=== PATIENT | female | born 1990 | race Caucasian/White ===

== ENCOUNTER 2018-10-15 14:59 | Inpatient (IN) ==
[2018-10-15] MEDS ORDERED: MISOPROSTOL 100 MCG TABLET VG PRN (18:02)
[2018-10-15 19:32] LABS: Cocaine Ur Negative (NEGATIVE); Urine Barbiturate Negative (NEGATIVE); Urine Benzodiazepines Negative (NEGATIVE); Urine Opiates Negative (NEGATIVE); Urine PCP Negative (NEGATIVE); Urine THC Negative (NEGATIVE)
[2018-10-15] MEDS: RINGER'S SOLUTION,LACTATED 1,000 ML IV PRN (19:35)
[2018-10-15] MEDS: OXYTOCIN/DEXTROSE 5%-WATER 30 UNITS/500 ML BAG IV ONE (20:40)
[2018-10-16] MEDS: RINGER'S SOLUTION,LACTATED 1,000 ML IV PRN ×3 (03:38→18:18)
[2018-10-16] MEDS: BUTORPHANOL TARTRATE 2 MG/ML VIAL IV PRN ×2 (05:04→20:12)
--- NOTE | 2018-10-16 08:49 | PN ---
Subjective - Date and Time Seen Date: 10/16/18 Subjective Narrative: labor note G1 39 weeks, induced for preeclampsia. pitocin started last night at 20:40, currently at 4 mu/min contractions: irregular, but some q1-2min. received stadol at 5 am. FHR: 120s with minimal variability from stadol, but with occasional accels. cervix: 2-3 cm, 60% and -1, very posterior. Attempted to place a Cardenas bulb through cervix, not successful. Plan: continue pitocin as tolerated. epidural later. Monster Ferrer MD Objective - Vitals Vitals: Last Vital Signs Temp 37.4 C 10/15/18 18:30 Pulse 78 10/15/18 18:30 Resp 18 10/15/18 18:30 BP 129/97 H 10/15/18 18:30 Pulse Ox 99 10/15/18 18:30
[2018-10-17] MEDS ORDERED: RINGER'S SOLUTION,LACTATED 1,000 ML IV ONE (02:30)
[2018-10-17] MEDS ORDERED: NALOXONE HCL 1 MG/1 ML SYRG IV PRN (02:50)
[2018-10-17] MEDS ORDERED: ONDANSETRON HCL/PF 2 MG/ML VIAL IV PRN (02:50)
[2018-10-17] MEDS ORDERED: fentaNYL CITRATE/PF 50 MCG/ML AMPUL IT SCH (03:00)
--- NOTE | 2018-10-17 03:45 | ANES ---
Anesthesia Pre Procedure Eval Vitals/Labs: Last Vital Signs Temp 37.4 C 10/15/18 18:30 Pulse 78 10/15/18 18:30 Resp 18 10/15/18 18:30 BP 129/97 H 10/15/18 18:30 Pulse Ox 99 10/15/18 18:30 HOME MEDICATIONS Vits96/Iron Fum/Folic [ S] 1 tab PO DAILY 07/23/18 [Last Taken 10/15/18] Allergies/Adverse Reactions: Allergies Allergy/AdvReac Type Severity Reaction Status Date / Time No Known Allergies Allergy Verified 10/15/18 18:04 - Planned Procedure Planned Procedure: INDUCTION Medication List Reviewed:: Yes Allergies Verified: Yes Medical History (Last Reviewed 10/17/18 @ 03:44 by Alhaji Gillis CRNA) no surgical history Premature 3 months premature at time of delivery Seizures Onset Date: Unknown as a child, last one in 2nd grade Family History (Last Reviewed 10/17/18 @ 03:44 by Alhjai Gillis CRNA) Mother Alive and well Kidney donor to her sister Father Unknown family medical history - Family Anesthesia History Family History:: no untoward family reactions to anesthesia, no familial bleeding tendencies, no family history of clotting disorders, no family history of premature - Airway/Neck/Teeth Within Normal Limits:: Yes Teeth Condition: intact Neck Exam: full range of motion Mallampatti Score: 2 Thyromental (T-M) distance: > 6 cm Mandibulo Hyoid distance: > 3 cm - Respiratory Respiratory Physical: lungs clear Sleep Apnea currently treated: No Sleep Apnea by current assessment: No - Cardiovascular Tolerate Activity: Good Heart Sounds: S1 & S2, Regular - Anesthesia Assessment and Plan ASA Class: PS, II, E Anesthesia Type Plan: Epidural - CSE for labor analgesia
--- NOTE | 2018-10-17 04:13 | ANES ---
Anesthesia Procedure Note Procedure Note: ANESTHESIA PROCEDURE NOTE Date of Procedure: 10/17/2018 Time of procedure: 3:50 AM. Performed by: Alhaji Gillis CRNA, MSN Driver Education Instructor: Barbara Chadwick RN. Preprocedure diagnosis: Active labor, labor pain. Post procedure diagnosis: Same. Procedure:Epidural for labor analgesia L3 4. Indications: Labor pain. Findings: See below. Details of the procedure: The patient was placed on the side of the bed in sitting positionand prepped with DuraPrep then draped in a sterile fashion. Lidocaine 1% was infiltrated to the skin and subcutaneous tissues at the level of the L3 4 interspace. An 18-gauge Touhy needle was used to approach the epidural space with loss of resistance technique. Once loss of resistance was achieved a 27-gauge spinal needle was passed through the epidural needle and CSF was contacted. After CSF returned, 20 mcg of fentanyl was injected in the spinal needle was removed the epidural catheter was then threaded approximately 4 cm in the epidural needle was removed. The catheter was taped in place and after careful aspiration 3 mL of 1.5% lidocaine with 1-200,000 epinephrine was injected without change in maternal heart rate or sensorium. . EBL: Minimal. Fluids: N/A. Specimen: N/A. Post procedure condition: The patient tolerated the procedure well with good relief. No complications were noted. Thank you for this consultation. Alhaji Gillis CRNA, MSN
--- NOTE | 2018-10-17 04:14 | ANES ---
Post Anesthesia Discharge - Transfer of Care Transfer of Care handoff given to nurse: Yes - Discharge from PACU Discharge from PACU when meets criteria: Yes - comfortable after CSE
[2018-10-17] MEDS: BUPIVACAINE HCL/0.9 % NACL/PF 250 ML EP PRN (04:27)
--- NOTE | 2018-10-17 04:39 | ANES ---
Post Anesthesia Assessment - Vital Signs Vitals: Last Vital Signs Temp 37.4 C 10/15/18 18:30 Pulse 78 10/15/18 18:30 Resp 18 10/15/18 18:30 BP 129/97 H 10/15/18 18:30 Pulse Ox 99 10/15/18 18:30 Airway Patency: Normal - Mental Status Level Of Consciousness: Awake, Alert, Appropriate - Pain Level Pain Score: 0 - N/V Assessment Dehydration:: Yes
[2018-10-17] MEDS: RINGER'S SOLUTION,LACTATED 1,000 ML IV PRN ×2 (10:41→19:00)
--- NOTE | 2018-10-17 12:54 | PN ---
Subjective - Date and Time Seen Date: 10/17/18 Subjective Narrative: labor note G1 39.1 weeks, induced for preeclampsia due to elevated BP and proteinuria. GBS negative. induced with pitocin, currently at 8 mu/min Contractins every 3-4 min. Cervix 3-4 cm, 80% and -1, making minimal change since yesterday. AROM around 8 AM this morning. large clear fluid. received epidural at 4:30 am. FHR: reassuring. Plan: continue pitocin as tolerated. possible c/s discussed. signed out care to Dr. Umaña now. Monster Ferrer MD Objective - Vitals Vitals: Last Vital Signs Temp 37.4 C 10/15/18 18:30 Pulse 78 10/15/18 18:30 Resp 18 10/15/18 18:30 BP 129/97 H 10/15/18 18:30 Pulse Ox 99 10/15/18 18:30 Cauti Physician Documentation - Urinary Catheter Management Urethral (Cardenas) Date of Insertion: 10/17/18 Time of Insertion: 04:15
--- NOTE | 2018-10-17 15:53 | PN ---
Marky Note - Interim Date: 10/17/18 Time: 15:46 Narrative: 10/17/18 15:46 Patient comfortable with epidural cvx was /-1 IUPC placed FHT cat 1 I was then called that the IUPC was curled. I replaced the IUPC. I threaded the IUPC on the left side of the head rather than the right side of the head. The IUPC was inserted without difficulty FHT still cat 1 Continue to titrate pitocin up The patient and her mother were updated regarding the plan of care
--- NOTE | 2018-10-17 18:31 | PN ---
Progess Note - Interim Date: 10/17/18 Time: 18:30 Narrative: 10/17/18 18:30 Called by RN regarding an intrapartum fever consistent with chorioamnionitis. Will order triple antibiotics
[2018-10-17] MEDS: AMPICILLIN SODIUM 2,000 MG in NORMAL SALINE 100 ML IV SCH (19:39)
[2018-10-17] MEDS ORDERED: GENTAMICIN SULFATE 80 MG in DEXTROSE 5 % IN WATER 100 ML IV ONE ×2 (20:00)
[2018-10-17] MEDS: CLINDAMYCIN PHOSPHATE 900 MG in DEXTROSE 5 % IN WATER 100 ML IV SCH ×2 (20:15)
[2018-10-18] MEDS: AMPICILLIN SODIUM 2,000 MG in NORMAL SALINE 100 ML IV SCH ×4 (01:15→23:32)
[2018-10-18] MEDS: BUPIVACAINE HCL/0.9 % NACL/PF 250 ML EP PRN (01:47)
[2018-10-18] MEDS ORDERED: ACETAMINOPHEN 500 MG TABLET PO ONE (02:10)
[2018-10-18] MEDS: CLINDAMYCIN PHOSPHATE 900 MG in DEXTROSE 5 % IN WATER 100 ML IV SCH ×6 (03:31→19:21)
[2018-10-18] MEDS: OXYTOCIN/DEXTROSE 5%-WATER 30 UNITS/500 ML BAG IV ONE (03:39)
[2018-10-18] MEDS ORDERED: ceFAZolin SODIUM/DEXTROSE,ISO 2 GM/50 ML BAG IV ONE (05:38)
--- NOTE | 2018-10-18 05:41 | PN ---
Progess Note - Interim Date: 10/18/18 Time: 05:39 Narrative: 10/18/18 05:39 The patient had a slow progress of labor. She has been pushing for over an hour without any descent in the head. Pt counseled regarding delivery for arrest of descent. All risks, benefits, and alternatives of the procedure were explained to the patient and the patient consented to the procedure. Ancef [address] Cardenas catheter Turn pitocin off Remove IUPC NPO now
[2018-10-18] MEDS ORDERED: HYDROcodone/ACETAMINOPHEN 1 EACH TABLET PO PRN (05:43)
[2018-10-18] MEDS ORDERED: BISACODYL 10 MG SUPP.RECT RC PRN (05:43)
[2018-10-18] MEDS ORDERED: diphenhydrAMINE HCL 25 MG CAPSULE PO PRN (05:43)
[2018-10-18] MEDS ORDERED: SIMETHICONE 80 MG TAB.CHEW PO PRN (05:43)
[2018-10-18] MEDS ORDERED: SENNOSIDES 8.6 MG TABLET PO PRN (05:43)
[2018-10-18] MEDS ORDERED: RINGER'S SOLUTION,LACTATED 1,000 ML IV ONE (05:43)
[2018-10-18] MEDS ORDERED: ONDANSETRON HCL/PF 2 MG/ML VIAL IV PRN (05:43)
[2018-10-18] MEDS ORDERED: OXYTOCIN 20 UNITS in RINGER'S SOLUTION,LACTATED 1,000 ML IV ONE (05:43)
--- NOTE | 2018-10-18 07:38 | ANES ---
Anesthesia Pre Procedure Eval Vitals/Labs: Last Vital Signs Temp 37.4 C 10/15/18 18:30 Pulse 78 10/15/18 18:30 Resp 18 10/15/18 18:30 BP 129/97 H 10/15/18 18:30 Pulse Ox 99 10/15/18 18:30 HOME MEDICATIONS Vits96/Iron Fum/Folic [ S] 1 tab PO DAILY 07/23/18 [Last Taken 10/15/18] Allergies/Adverse Reactions: Allergies Allergy/AdvReac Type Severity Reaction Status Date / Time No Known Allergies Allergy Verified 10/15/18 18:04 - Planned Procedure Planned Procedure: C/S Medication List Reviewed:: Yes Allergies Verified: Yes Medical History (Last Reviewed 10/18/18 @ 07:37 by Efren Haider CRNA) no surgical history Premature 3 months premature at time of delivery Seizures Onset Date: Unknown as a child, last one in 2nd grade Family History (Last Reviewed 10/18/18 @ 07:37 by Efren Haider CRNA) Mother Alive and well Kidney donor to her sister Father Unknown family medical history - Family Anesthesia History Family History:: no untoward family reactions to anesthesia, no familial bleeding tendencies, no family history of clotting disorders, no family history of premature - Airway/Neck/Teeth Within Normal Limits:: Yes Teeth Condition: intact Mallampatti Score: 3 Thyromental (T-M) distance: > 6 cm Mandibulo Hyoid distance: > 3 cm - Respiratory Respiratory Physical: lungs clear Smoking Status: Never smoker Discussed smoking cessation including day of surgery: No Sleep Apnea currently treated: No Sleep Apnea by current assessment: No Discussed Risks/Treatment of KARISSA: No - Cardiovascular Tolerate Activity: Good Heart Sounds: S1 & S2, Regular - Anesthesia Assessment and Plan ASA Class: PS, II, E Anesthesia Type Plan: Epidural
--- NOTE | 2018-10-18 07:39 | ANES ---
Post Anesthesia Discharge - Transfer of Care Transfer of Care handoff given to nurse: Yes - Discharge from PACU Discharge from PACU when meets criteria: Yes - Discharge to ASU Discharge to ASU-no complications/pt stable: Yes
--- NOTE | 2018-10-18 07:41 | ANES ---
Post Anesthesia Assessment - Vital Signs Vitals: Last Vital Signs Temp 37.4 C 10/15/18 18:30 Pulse 78 10/15/18 18:30 Resp 18 10/15/18 18:30 BP 129/97 H 10/15/18 18:30 Pulse Ox 99 10/15/18 18:30 Airway Patency: Normal - Mental Status Level Of Consciousness: Awake - Pain Level Pain Score: 0 - N/V Assessment Nausea/Vomiting Presence: None Dehydration:: No
--- NOTE | 2018-10-18 07:47 | OR ---
Operative Report - Dictated Report Narrative: Date of delivery: 10/18/2018 Time of delivery: 636 Gender: male weight: 3701 grams APGARS 9/9 Procedure: primary delivery Surgeon: Dr. Umaña Anesthesia: epidural Indications for the procedure: The patient is a 28 year old @ 39w 2d who had a very long induction of labor. She was induced with pitocin. Rupture of membranes occurred yesterday. The patient developed an intrapartum fever consistent with chorioamnionitis and for this reason she was started on antibiotics. She had a slow progress of labor. Once she was 10cm dilated she pushed for over an hour without any descent of the head and thus the decision to perform a delivery was made for arrest of descent. All risks, benefits, and alternatives of the procedure were explained to the patient and the patient consented to the procedure. Description of the procedure: The patient was taken to the operating room where her epidural anesthesia was found to be adequate. She was then prepped and draped in the supine position in the standard surgical fashion. Attention was then turned to the abdomen. A Pfannestiel skin incision was made. The incision was carried through the subcutaneous tissue. The subcutaneous tissue was highly vascular. Bleeding was controlled as I was going in. A brisk bleeder in the left side of the incision in the subcutaneous tissue was controlled as well. The fascia was incised in the midline. The fascial incision was extended laterally. The fascia was dissected from the underlying rectus muscles. The peritoneum was entered bluntly. The bladder was noted to be in the field likely secondary from swelling from a prolonged labor. A large Rohit retractor was placed. I did not feel like there was enough room to accommodate the head and thus the incision was extended bilaterally and the Rhoit retractor was placed again. The uterus was incised in a low transverse fashion well away from the bladder. The head was delivered atraumatically. The rest of the infant was delivered atraumatically. The shoulders were noted to be large compared to the size of the head. The rest of the infant was delivered and handed off to the attending pediatric staff after the cord was clamped and cut. The uterus was cleared of all clots and debris. The inferior layer of the incision was grasped with Allis clamps. The uterine incision was closed in two layers using 0-vicryl. Several additional sutures needed to be placed for hemostasis. The Rohit retractor was removed once hemostasis was ensured. The rectus muscles were examined and made hemostatic. The fascia was also examined and made hemostatic. The fascial incision was closed with 1-0 vicryl. The subcutaneous tissue was irrigated. Additional hemostasis of the subcutaneous layer was obtained. The subcutaneous tissue was closed with 2-0 vicryl. The skin was closed with 3-0 monocryl on a Corky needle. Dermabond was placed over the incision. All sponge, lap, and needle counts were correct. The patient tolerated the procedure well. She was transferred to the recovery room in stable condition. EBL: 600 mL Complications: none Specimens: placenta Definition: * The number of deliveries resulting in a live the patient experienced prior to current hospitalization * The previous delivery of live twins or any live multiple gestation is considered one live event. *If primagravida or nulliparous is documented select zero for the number of previous live births. Live Births: 0
[2018-10-18] MEDS: KETOROLAC TROMETHAMINE 30 MG/ML VIAL IV PRN ×2 (09:33→19:19)
[2018-10-18] MEDS: HYDROcodone/ACETAMINOPHEN 1 EACH TABLET PO PRN ×3 (09:34→18:10)
[2018-10-18] MEDS: DOCUSATE SODIUM 100 MG CAPSULE PO SCH ×2 (11:56→20:21)
[2018-10-18] MEDS ORDERED: RHO(D) IMMUNE GLOBULIN 1,500 UNIT SYRINGE IM ONE (14:58)
[2018-10-19] MEDS: HYDROcodone/ACETAMINOPHEN 1 EACH TABLET PO PRN ×5 (02:39→20:33)
[2018-10-19] MEDS: KETOROLAC TROMETHAMINE 30 MG/ML VIAL IV PRN (02:39)
[2018-10-19] MEDS: AMPICILLIN SODIUM 2,000 MG in NORMAL SALINE 100 ML IV SCH ×2 (05:01→10:34)
[2018-10-19] MEDS: CLINDAMYCIN PHOSPHATE 900 MG in DEXTROSE 5 % IN WATER 100 ML IV SCH ×2 (05:02)
--- NOTE | 2018-10-19 09:24 | PN ---
Subjective - Date and Time Seen Date: 10/19/18 Time: 09:21 Subjective Narrative: Pt without complaints Objective Objective Narrative: See vital signs - Review of Systems Generalized/Overall Review: Reports: No Symptoms Reported Misc: All systems neg except as marked - Vitals Vitals: Last Vital Signs Temp 37.3 C 10/19/18 09:19 Pulse 81 10/19/18 09:19 Resp 18 10/19/18 09:19 BP 122/85 10/19/18 09:19 Pulse Ox 97 10/19/18 09:19 - Exam Constitutional: Present: Alert, Oriented x3, Cooperative, No distress Abdomen: Present: soft, nontender, nondistended - incision c/d/i Extremity: Present: non-tender, no calf tenderness Skin Exam: Present: normal color, warm/dry, no cyanosis Appearance: Present: appropriate appearance Eye contact: Present: cooperative Thoughts: Present: normal thought pattern Cauti Physician Documentation - Urinary Catheter Management Urethral (Cardenas) Urethral Indwelling: No Date of Insertion: 10/18/18 Time of Insertion: 05:56 Date of Removal: 10/18/18 Time of Removal: 19:00 Assessment/Plan Plan Narrative: POD 1 s/p primary delivery for arrest of descent Doing well Continue routine care
[2018-10-19] MEDS: DOCUSATE SODIUM 100 MG CAPSULE PO SCH ×2 (09:50→20:33)
[2018-10-19] MEDS: IBUPROFEN 800 MG TABLET PO PRN (12:57)
[2018-10-20] MEDS: IBUPROFEN 800 MG TABLET PO PRN ×3 (07:11→20:44)
[2018-10-20] MEDS: HYDROcodone/ACETAMINOPHEN 1 EACH TABLET PO PRN ×3 (07:12→20:47)
[2018-10-20] MEDS: DOCUSATE SODIUM 100 MG CAPSULE PO SCH ×2 (08:57→20:43)
--- NOTE | 2018-10-20 15:24 | PN ---
Subjective - Date and Time Seen Date: 10/20/18 Subjective Narrative: post op day 2, s/p primary c/s for failure to descent with intrapartum fever/chorioamnionitis. a/p clinda/amp for chorioamnionitis. doing well today. no complaints. no fever or chills. bottle feeding. normal lochia. ambulating and tolerating diet well. Objective - Vitals Vitals: Last Vital Signs Temp 36.4 C 10/20/18 12:30 Pulse 80 10/20/18 12:30 Resp 18 10/20/18 12:30 BP 127/83 10/20/18 12:30 Pulse Ox 98 10/20/18 12:30 - Exam Constitutional: Present: Alert, Oriented x3, Cooperative Respiratory: Present: no respiratory distress Abdomen: Present: soft, nontender, nondistended, other - fundus firm and non- tender, 2 fingers below umbilicus. incision dry and clean Extremity: Present: normal range of motion, no calf tenderness, lower extremity edema - 1+ bilaterally Appearance: Present: appropriate appearance Eye contact: Present: cooperative, good eye contact, normal speech Cauti Physician Documentation - Urinary Catheter Management Urethral (Cardenas) Urethral Indwelling: No Date of Insertion: 10/18/18 Time of Insertion: 05:56 Date of Removal: 10/18/18 Time of Removal: 19:00 Assessment/Plan Plan Narrative: A: post op day 2 from c/s and status post clinda/amp for choriaminonitis, stable and well. Plan: routine and post op care. ambulation encouraged. Monster Ferrer MD
[2018-10-21] MEDS: HYDROcodone/ACETAMINOPHEN 1 EACH TABLET PO PRN ×3 (01:05→10:33)
[2018-10-21] MEDS: IBUPROFEN 800 MG TABLET PO PRN ×2 (04:24→10:33)
[2018-10-21 05:07] VITALS: BP 125/83
[2018-10-21] MEDS: DOCUSATE SODIUM 100 MG CAPSULE PO SCH (09:19)
--- NOTE | 2018-10-21 10:58 | PN ---
Subjective - Date and Time Seen Date: 10/21/18 Subjective Narrative: post op day 3, s/p primary c/s for failure to descent. s/p antibiotics for chorioamnionitis in labor. doing well. no complaints. afebrile. ambulating and tolerating diet well. bottle feeding. normal lochia. Objective - Vitals Vitals: Last Vital Signs Temp 36.4 C 10/20/18 12:30 Pulse 82 10/21/18 01:30 Resp 16 10/21/18 01:30 BP 125/83 10/21/18 01:30 Pulse Ox 100 10/21/18 01:30 - Exam Constitutional: Present: Alert, Oriented x3, Cooperative Respiratory: Present: no respiratory distress Cardiovascular/Chest: Present: normal peripheral pulses Abdomen: Present: soft, nontender, nondistended, other - incision dry and clean. fundus firm, non-tender and below umbilicus. Extremity: Present: normal range of motion, no calf tenderness, lower extremity edema - 1+ bilaterally Skin Exam: Present: normal color, warm/dry, no cyanosis Appearance: Present: appropriate appearance Eye contact: Present: cooperative, good eye contact, normal speech Cauti Physician Documentation - Urinary Catheter Management Urethral (Cardenas) Urethral Indwelling: No Date of Insertion: 10/18/18 Time of Insertion: 05:56 Date of Removal: 10/18/18 Time of Removal: 19:00 Assessment/Plan Plan Narrative: A: post op day 3, s/p c/s, stable and well. plan: will discharge home today. Monster Ferrer MD
== END 2018-10-21 14:00 | disposition home or self-care (01) | DRG 786 ==
LOC: OB 14:59 → MS 10-20 20:57
PROVIDERS: ADMIT Obstetrics & Gynecology; ATTEND Obstetrics & Gynecology
CPT/HCPCS: 36415; 59025; 80307; 82565; 85460; 86850; 86900; 88307; J2790